=== PATIENT | female | born 2005 | race Two or more races ===

== ENCOUNTER 2024-06-18 17:48 | Emergency (ER) | payer SELFPAY ==
[~2024-06-18] VITALS: Ht 157.5 cm; Wt 60.0 kg
[2024-06-18 17:57] VITALS: BP 124/73; TEMP 101.2; O2SAT 99
[2024-06-18 17:58] VITALS: PULSE 133; RESP 18; O2SAT 99
[2024-06-18] MEDS: ACETAMINOPHEN 500MG TABLET PO ONE (21:50)
[2024-06-19 00:12] LABS: CLARITY URINE CLEAR (CLEAR); COLOR URINE DARK YELLOW (YELLOW); GLUCOSE URINE NEGATIVE (NEGATIVE); KETONES URINE 1+ (NEGATIVE); LEUKOCYTE ESTERASE URINE NEGATIVE (NEGATIVE); NITRITE URINE NEGATIVE (NEGATIVE); OCCULT BLOOD URINE NEGATIVE (NEGATIVE); PH URINE 6.5 (4.5-8.0); PROTEIN URINE 2+ (NEGATIVE); SPECIFIC GRAVITY URINE 1.035 (1.005-1.030)
[2024-06-19 00:54] LABS: BACTERIA URINE 1+; MUCUS URINE 1+ /lpf (< = 2+); RBC URINE NONE SEEN /hpf (0-2); SQUAMOUS EPITHELIAL CELL URINE 1+ /lpf (RARE/1+); WBC URINE 0-2 /hpf (0-2)
[2024-06-19] MEDS ORDERED: ACET-2708 MT (01:17)
== END 2024-06-19 01:00 | disposition home or self-care (01) ==
LOC: ER 17:48
DX: B34.9 Viral infection, unspecified (principal); Z20.822 Contact with and (suspected) exposure to COVID-19
CPT/HCPCS: 81003; 81025; 87070; 87426; 87430; 87804; 99283